=== PATIENT | male | born 1935 | race Caucasian/White ===

== ENCOUNTER 2018-07-14 12:11 | Observation (INO) ==
[2018-07-14] MEDS ORDERED: *HR* Propofol 200 MG/20 ML VIAL IVP ONE (12:30)
[2018-07-14] MEDS ORDERED: *HR* FentaNYL (PF) 100 MCG/2 ML VIAL ONE ×2 (12:30→16:52)
[2018-07-14] MEDS ORDERED: *HR* Rocuronium Bromide 50 MG/5 ML VIAL ONE (12:40)
[2018-07-14] MEDS ORDERED: Lidocaine -MPF 2% 2 ML VIAL ONE (12:40)
[2018-07-14] MEDS ORDERED: Lidocaine -MPF 4% 5 ML AMPUL ONE (12:40)
[2018-07-14] MEDS ORDERED: Ondansetron 4 MG/2 ML VIAL ONE (12:40)
[2018-07-14] MEDS ORDERED: *HR* Succinylcholine 200 MG/10 ML VIAL IVP ONE (12:41)
--- NOTE | 2018-07-14 13:10 | History & Physical Report ---
Date of Encounter: 07/14/18 Time of Encounter: 13:09 24 Hour HP Update - Instructions Instructions: If the History and Physical is less than 30 days old and was completed prior to A.M. admission and or procedure and has NOT been updated on calendar day of procedure please complete this update prior to performing procedure. - Update Patient reports changes in Medical Condition: No Changes in examination, assessment, or condition: No Changes in Medication: No Preop tests/diagnostics Reviewed: Yes Surgery Remains Indicated: Yes Consent for Planned Operative Procedure(s) Verified: Yes - Pre-Operative Checklist Preoperative Checklist Indicated: Yes Prophylactic Antibiotic Ordered: Yes Home Medications Include Beta Jenifer: No
[2018-07-14] MEDS ORDERED: CeFAZolin Syr 2,000MG/20 ML 2,000 MG/20 ML SYRINGE IVPB ONE (13:21)
[2018-07-14] MEDS ORDERED: Ringers Solution, Lactated 1,000 ML IVC SCH (13:30)
[2018-07-14] MEDS ORDERED: Famotidine 20 MG/2 ML VIAL IVP ONE (13:35)
[2018-07-14] MEDS ORDERED: Acetaminophen IV 1,000 MG/100 ML INFUS..BTL IVPB ONE (13:36)
--- NOTE | 2018-07-14 14:00 | Anesthesia Evaluation PreOp ---
Date of Encounter: 07/14/18 Time of Encounter: 13:50 - Past History Planned Operation: Robotic Lap Femoral Hernia Repair Cardiac History: AR, Arrhythmia (AFib last dose coumadin last Thursday), Pacemaker/ICD Pulmonary History: Former smoker [employer] History: Denies Any Significant HX Other Medical History: Renal (CKD), Diabetes Type II, Thyroid, Other (BPH) Anesthesia History: No Prior Anesthetic Complications Alcohol Use: none Drug use: none Medications and Allergies Aspirin [Lo-Dose Aspirin EC] 81 mg PO DAILY 03/17/18 [History] Enoxaparin [Lovenox] 40 mg SQ BID 03/17/18 [History] Enoxaparin [Lovenox] 40 mg SQ Q12HR 5 Days #10 syr 03/17/18 [Rx] Esomeprazole Magnesium [Nexium] 40 mg PO DAILY 03/17/18 [History] Furosemide [Lasix] 20 mg PO DAILY 03/17/18 [History] GlipiZIDE XL (24 HR) [Glucotrol XL] 2.5 mg PO DAILY 03/17/18 [History] Levothyroxine Sodium 75 mcg PO DAILY 03/17/18 [History] Lipase/Protease/Amylase [Noe Dr 36,000 Units Capsule] 2 cap PO BID 03/17/18 [History] Metoprolol Tartrate 100 mg PO BID 03/17/18 [History] OxyCODONE Immed Rel [Roxicodone 5 MG] 5 mg PO Q6HR PRN 7 Days #28 tablet 03/17/18 [Rx] Rosuvastatin Calcium 5 mg PO HS 03/17/18 [History] Warfarin Sodium 2.5 mg PO DAILY 03/17/18 [History] Allergy/AdvReac Type Severity Reaction Status Date / Time No Known Allergies Allergy Verified 07/08/18 08:41 - Meds/Allergy Pre-op Review Medications Reviewed: Yes Allergies Reviewed: Yes Beta Blockers on Current Med List: Yes (Givemn Metoprolol today 1400) Anesthesia Results - Imaging EKG: report reviewed Additional studies: EF 51% Anesthesia Exam O2 Sat Height 1.7 m Height 1.7 m Weight 78.925 kg Weight 78.925 kg O2 Sat by Pulse Oximetry 94 Vital Signs Temp Pulse Resp BP Pulse Ox 97.7 F 90 18 124/87 94 07/14/18 12:32 07/14/18 12:32 07/14/18 12:32 07/14/18 12:32 07/14/18 12:32 Height: 5'7 Weight: 174 lbs NPO (# of Hours): MN Pain Scale: 0 - HEENT Pupil (Motor): Pupils equal, EOMI Mallampati: II Oral Opening: Greater than 3 - [employer] LOC: Oriented (Hard of Hearing) [employer] Motor: Normal RUE, Normal LUE, Normal RLE, Normal LLE, Normal Face [employer] Sensory: Normal: RUE, LUE, RLE, LLE, Face - Cardiac Rhythm: Regular Murmur: None JVD: No Carotid Bruit: No - Pulmonary Breath Sounds: bilateral Clear Respiratory Effort: Symmetrical Anesthesia Assess/Plan ASA Score: 3 (AFib HTN DM) Level of consciousness: Cooperative, Oriented Anesthetic Plan: General Autologous Blood: No Monitoring Plan: Standard Monitors Recovery Plan: PACU (Discussed GA, agrees to proceed)
--- NOTE | 2018-07-14 15:22 | Operative Note ---
Date of procedure: 07/14/18 Pre-op diagnosis: Robotic Left Inguinal Post-op diagnosis: other (Incisional hernia in the right groin) Procedure: Robotic Left Inguinal Hernia with repair with mesh and right lower abdominal wall incisional hernia repair with mesh Anesthesia: AMRTIN Surgeon: Avinash Macedo Was there an assistant center manager present: Yes Stopper Maker Helper: Avinash Macedo Estimated blood loss (cc): 5 Specimen: 0 Condition: stable Disposition: same day Procedure in Detail: After informed consent, patient was taken the operating room placed in the supine position. After adequate sedation anesthesia the abdomen was prepped and draped. An incision was made in the subxiphoid region with an eleven blade knife. A 12 mm cannula was then placed into the abdomen under direct visualization. Once a pneumoperitoneum was established two individual 8 mm cannulas were placed in the right and left upper quadrant. The patient was placed in a headdown position the abdomen was evaluated and found to have a left inguinal hernia. The robot was docked over the patient's left hip. The robotic arms were connected to the 8 mm cannulas. A Cadiere clamp and large suture cut needle pedicab driver was placed into the abdomen. A 4 x 6" mesh had been cut and fashioned and placed within the abdomen. A 2 x 6 mesh was also placed. The peritoneum was then taken down scissors. The pubic tubercle was visualized, as was the iliac artery and vein and the inferior epigastric vessels. The hernia sac was seen attached to the spermatic cord structures. This was dissected free from the cord structures. Once completed the 4 x 6 piece of mesh was then placed in the preperitoneal space. It was sutured to the fascia of the pubic tubercle and an 0 Vicryl suture was then used to run the mesh in place medially and superiorly. The inferior limb of the mesh was brought inferior to the spe rmatic cord structures area it too was sutured superiorly and laterally. The 2 x 6 piece of mesh was then placed over the internal ring. It was sutured again to the pubic tubercle medially and brought out through the peritoneum. A second suture was brought out laterally on the peritoneum they were run towards the midline, then tied and secured. An 0 Ethibond suture was used to close this primarily. There is a defect identified on the right abdominal wall. The peritoneum was taken down. I was able to identify an incisional hernia in the right abdominal wall potentially from her previous abdominal surgery. The tissues were removed which had been previously incarcerated. There is no strangulation. The defect once skeletonized was covered with a 4 x 6" mesh. This mesh had been bivalved to incorporate the spermatic cord structures. It was sewn to the pubic tubercle medially and to the transversus abdominis muscle laterally. The inferior limb of the mesh was brought inferior to the spermatic cord. A second piece of mesh that was 2 x 6" was placed over top of the new internal ring it too was sutured with an 0 Vicryl suture. The peritoneum was then closed in running fashion. Once completed its needle was removed. The other 2 individual needles were then retrieved from the abdomen. The pneumoperitoneum was evacuated from the abdomen. The 12 mm cannula site was then closed with an 0 Vicryl suture. The skin was closed with 4-0 Vicryl suture followed by Dermabond. All instrument counts and needle counts were correct in the case. The patient was taken to the recovery room in stable condition.
--- NOTE | 2018-07-14 15:26 | Discharge Summary ---
Outpatient Proc Discharge Plan - Plan Additional Instructions: Pt may have a regular diet. Pt may shower tonight. Pt may start driving in approximately 5-7 days. Pt to follow up in 2 weeks. Prescriptions: OxyCODONE/APAP 5/325 [Percocet 5/325 MG] 1 each PO Q6HR PRN 7 Days #14 tablet PRN Reason: Pain Home Medications: Aspirin [Lo-Dose Aspirin EC] 81 mg PO DAILY 03/17/18 [History] Esomeprazole Magnesium [Nexium] 40 mg PO DAILY 03/17/18 [History] Furosemide [Lasix] 20 mg PO DAILY 03/17/18 [History] GlipiZIDE XL (24 HR) [Glucotrol XL] 2.5 mg PO DAILY 03/17/18 [History] Levothyroxine Sodium 75 mcg PO DAILY 03/17/18 [History] Lipase/Protease/Amylase [Noe Dr 36,000 Units Capsule] 2 cap PO BID 03/17/18 [History] Metoprolol Tartrate 100 mg PO BID 03/17/18 [History] Warfarin Sodium 1.25 mg PO DAILY 03/17/18 [History] OxyCODONE/APAP 5/325 [Percocet 5/325 MG] 1 each PO Q6HR PRN 7 Days #14 tablet 07/14/18 [Rx] Rosuvastatin Calcium 5 mg PO HS 07/14/18 [History]
[2018-07-14] MEDS ORDERED: *HR* Metoprolol 5 MG/5 ML VIAL IVP ONE (16:13)
[2018-07-14] MEDS ORDERED: Neostigmine Methylsulfate 3 MG/3 ML SYRINGE ONE (16:51)
[2018-07-14] MEDS ORDERED: Albuterol 2.5 MG/3 ML NEBULIZER IH ONE (18:05)
[2018-07-14] MEDS ORDERED: Albuterol 2.5 MG/3 ML NEBULIZER ONE (18:07)
[2018-07-14] MEDS ORDERED: Levofloxacin 750 MG/150 ML 750 MG/150 ML BAG IVPB ONE ×2 (18:50→19:53)
--- NOTE | 2018-07-14 18:59 | Anesthesia Evaluation Post Op ---
Date of Encounter: 07/14/18 Time of Encounter: 19:00 - Vital Signs Vital Signs: Vital Signs/O2 Sat/Glucose, Most Current Temp Pulse Resp BP Pulse Ox 07/14/18 18:30 71 20 113/84 98 07/14/18 18:00 70 20 112/88 100 07/14/18 17:31 98.2 F 67 20 120/89 100 07/14/18 17:25 97.4 F L 73 16 129/94 98 07/14/18 17:15 73 14 123/97 100 07/14/18 17:05 80 14 135/93 92 07/14/18 16:55 97.8 F 81 16 138/95 100 - Lungs Lungs: Rhonchi - Airway Airway: Non-obstructed - Cardiovascular Baseline Rhythm - Mental Status Mental Status: Alert & Oriented, Answers Appropriately - Pain Pain Scale: 1 - Nausea Vomiting Nausea Vomiting: Not Present - Hydration Hydration: Tolerates oral liquids, Unable to void - Discharge PostOp Status: Transfer Patient to floor (Patient to be admitted for overnight observation)
[2018-07-14] MEDS ORDERED: Ondansetron 4 MG/2 ML VIAL IVP PRN (20:41)
[2018-07-15] MEDS ORDERED: *HR* Metoprolol 5 MG/5 ML VIAL IVP ONE (09:13)
[2018-07-15] MEDS: OXYCODONE Oral CONC 10 MG/0.5 ML ORAL.SYG SL PRN ×2 (09:30→17:23)
[2018-07-15 10:36] LABS: INR 1.5; Prothrombin Time 16.9 Seconds (9.4-12.1)
[2018-07-15] MEDS ORDERED: Metoprolol 100 MG TABLET PO SCH (10:45)
[2018-07-15] MEDS ORDERED: LIPASE PO SCH (10:45)
[2018-07-15] MEDS ORDERED: Furosemide 20 MG TABLET PO SCH (10:45)
[2018-07-15] MEDS ORDERED: PROTEASE PO SCH (10:45)
[2018-07-15] MEDS ORDERED: Aspirin Enteric Coated 81 MG Tablet PO SCH (10:45)
[2018-07-15] MEDS ORDERED: *HR* GlipiZIDE XL (24 HR) 2.5 MG TABLET PO SCH (10:45)
[2018-07-15] MEDS ORDERED: AMYLASE PO SCH (10:45)
--- NOTE | 2018-07-15 15:46 | Event Note ---
Date of Encounter: 07/15/18 Time of Encounter: 15:44 Patient with no atrial fibrillation, status post pacemaker/ICD. He reports he was post a follow-up with his wool shearer this month but he has not done so. His heart rate today was elevated in the 120s to 130s. He was treated with IV metoprolol, his home dose of PO metoprolol, and one dose of diltiazem 10 mg. His abdominal discomfort is controlled, his heart rate has now normalized to 80s to low 100s. He would like to be discharged. He is advised to follow up with his wool shearer within the next 2 weeks. He is further advised if his heart rate increases, he has chest pain, or feels short of breath he should go to the newest emergency department. He verbalizes understanding and adherence. He is also noted to have some bruising starting in his penis. The patient is advised that he will need to wear a jock strap and keep ice in the area. This is a normal finding after his surgery. If he has any difficulty urinating, or worsening discomfort he should notify the surgeon. We will begin discharge planning to home with a follow-up in approximately 2 weeks.
[2018-07-15 15:51] VITALS: BP 100/69
[2018-07-15] MEDS ORDERED: *HR* Warfarin 2.5 MG TABLET PO SCH (18:00)
[2018-07-16] MEDS ORDERED: *HR* Warfarin 2.5 MG TABLET PO SCH (18:00)
== END 2018-07-15 18:03 | disposition home or self-care (01) ==
LOC: SAMDAY 12:11 → 2NNU 12:11
PROVIDERS: ADMIT Surgery; ATTEND Surgery